=== PATIENT | male | born 1965 | race Hispanic/Latino ===

== ENCOUNTER 2021-01-02 09:37 | Outpatient (CLI) | payer OTHER ==
--- NOTE | 2021-01-02 13:48 | Magnetic Resonance Report ---
MR lumbar spine wo con INDICATION / CLINICAL INFORMATION: 55 years Male; BACK PAIN. TECHNIQUE: Multisequence, multiplanar images of the lumbar spine were obtained. COMPARISON: None available. FINDINGS: ALIGNMENT: Dextroscoliosis seen with apex at approximately L3. VERTEBRAE:Grossly normal marrow signal and vertebral body height for age. Multilevel Schmorl's nodes seen, none of which demonstrate adjacent edema. These findings certainly could be associated with ba ck pain. VISUALIZED SPINAL CORD: No significant abnormality. Conus is grossly normal in appearance. INTERVERTEBRAL DISCS: Multilevel disc space narrowing and desiccation noted. [id number] ANALYSIS: T12-L1: Mild facet hypertrophy. L1-2: Mild disc bulge and facet hypertrophy. Small left paracentral disc protrusion. L2-3: Mild to moderate disc bulge and mild facet hypertrophy. Broad-based left lateral recess/foramin al/extra foraminal disc protrusion on the left. L3-4: Mild disc bulge. Kley-qj-vcwgagxm facet hypertrophy. Some degree of lateral recess narrowing is seen on the left, which may affect the left L4 nerve. L4-5: Mild disc bulge. Broad-based right lateral recess/foraminal disc extrusion, disc material exten ding to the suprapedicular level of L5. This finding encroaches upon and posteriorly displaces the ri ght L5 nerve. Aeie-lb-swiclndw facet hypertrophy. Mild to moderate foraminal narrowing on the right a nd mild on the left. L5-S1: Broad-based left paracentral/lateral recess disc protrusion. Mild to moderate facet hypertroph y. Moderate foraminal narrowing is seen on the right and mild on the left. There is encroachment upon the right L5 nerve without impingement. PARASPINAL SOFT TISSUES: No significant abnormality. 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 IMPRESSION: 1. Degenerative changes of the lumbar spine as described above. Most marked findings appear to be at L4-5. Please correlate with dermatomal distribution of patient's symptoms, if present. Signer Name: Ankit Landeros MD, III Signed: 01/02/2021 1:43 PM Workstation Name: [id number]
== END 2021-01-02 09:38 | disposition home or self-care (01) ==
LOC: MRI 09:37
PROVIDERS: ATTEND Internal Medicine
DX: M47.817 Spondylosis without myelopathy or radiculopathy, lumbosacral region (principal); M51.37 Other intervertebral disc degeneration, lumbosacral region; M48.061 Spinal stenosis, lumbar region without neurogenic claudication
CPT/HCPCS: 72148